=== PATIENT | male | born 1980 | race African-American/Black ===

== ENCOUNTER 2016-08-26 11:23 | Emergency (ER) | payer SELFPAY ==
[2016-08-26 11:35] VITALS: BMI 28.0
[2016-08-26 11:38] VITALS: TEMP 98.3
[2016-08-26] MEDS ORDERED: HYDROmorphone 1 MG INJECTION IV ONE (11:54)
[2016-08-26] MEDS ORDERED: Clindamycin 900 mg/D5W 50 ml 900 MG/50 ML IVB IV ONE (11:55)
[2016-08-26] MEDS ORDERED: DEXAMETHASONE PF 10 MG/1 ML VIAL IM ONE (11:55)
--- NOTE | 2016-08-26 12:00 | EDPRACDOC ---
- General Information Chief Complaint: Sore Throat Stated Complaint: SORE THROAT Time Seen by Provider: 08/26/16 11:40 Information Source: Patient Mode Of Arrival: Car Home Medications: Home Medications Clindamycin [Cleocin] 300 mg PO TID #56 cap 08/26/16 Ondansetron [Zofran Odt] 4 mg PO Q6H PRN #20 tab.rapdis 08/26/16 Oxycodone Immediate Release [Oxycodone Immediate Release (OxyIR)] 5 mg PO Q6H PRN #30 tab 08/26/16 Allergies/Adverse Reactions: Allergies Allergy/AdvReac Type Severity Reaction Status Date / Time No Known Allergies Allergy Unverified 08/26/16 11:35 - History of Present Illness Onset: 4 DAYS Medications/Treatment GRADER PATROL Ibuprofen/Acetaminophen (Dose/ ADVIL X 1-799 Time) HPI: PT STATES HE BEGAN HAVING SORE THROAT 4 DAYS AGO AND IT IS WORSENING. PT PRESENT WITH HOT POTATO VOICE Sore Throat Symptoms: Reports: Pain, Muffled Voice White Spots Location: Reports: Pharynx Recent: Reports: None Relevant History of: Reports: None Pain Severity: Reports: Moderate Urinary Output: Normal Oral Intake: Decreased Associated Signs and Symptoms: Reports: Earache - Treatment Prior to ED Arrival Reported Medications/Treatment GRAD[employer] PATROL Ibuprofen/Acetaminophen (Dose/ ADVIL X -799 Time) ED Past Medical History - History Reviewed Yes Nurses notes reviewed and agree except as marked - Patient Medical History Psychological History: Denies: Depression - Social Medical History Smoking Status: Light tobacco smoker (less than 5/day) EDM Review of Systems - Review of Systems ROS Negative Except as Marked: Yes All systems reviewed and were negative except as marked - Physical Exam Constitutional: Alert Oriented to: Time, Person, Place Last recorded Vital Signs: Last Vital Signs Temp 98.3 F 08/26/16 11:35 Pulse 114 08/26/16 11:35 Resp 20 08/26/16 11:35 BP 155/84 08/26/16 11:35 Pulse Ox 96 08/26/16 11:35 Oxygen Pulse Oxygen Saturation 96 O2 Device Oxygen Flow Rate Fraction of Inspired Oxygen ( FIO2) - HEENT Head: Normal ( normocephalic) Eye Exam: Normal (PERRL, EOMI, Sclera white) Oropharynx: Exudate, Red, Tonsillar Hypertrophy (LARGE LEFT TONSIL, PUSHING UVULA TO THE RIGHT) Tympanic Membrane: Normal Nose: No Symptoms Reported (septum midline) Neck: Normal (FROM, trachea at midline) - Respiratory/Cardiovascular Respiratory: Normal - CTA (BBS clear to auscultation without adventitious sounds ) Cardiovascular: Normal (RRR without murmur, gallop or rub) - GI Auscultation: Normal (NABS) Palpation: Normal (Soft,No rebound or guarding, non distended) Tenderness: Non tender Zaidi's Sign: Negative Rectal Exam: Deferred - Musculoskeletal Back: Normal (Non-Tender) Extremities: Normal (Normal tone, Pulses 2+ No cyanosis or edema, FROM) - Integumentary Skin: Normal, Warm, Dry Lymphatics: Normal (no adenopathy) - Neurologic Memory Impaired: Normal Motor Function: Normal (Normal tone, Pulses 2+ No cyanosis or edema, FROM) Cranial Nerve: Normal (CN II-X11 intact sensation, strength 5/5) Cerebellar: Normal Mood Description: Normal Perception: Normal - Differential Diagnosis Peritonsillar abscess, Pertonsillar cellulitis - Results 08/26/16 12:10 08/26/16 12:10 Decision Time to Discharge: 13:25 - Departure Disposition: Home Condition: Stable Final Diagnosis: Peritonsillar cellulitis Instructions: Peritonsillar Abscess (ED), Tonsillectomy (GEN) Education/Counseling Given To: Patient Education/Counseling Given Regarding: Diagnosis, Treatment, Prognosis, Follow Up Referrals: Miguel Mitchell DO [Staff Physician] - One Week Prescriptions: Clindamycin [Cleocin] 300 mg PO TID #56 cap Ondansetron [Zofran Odt] 4 mg PO Q6H PRN #20 tab.rapdis PRN Reason: Nausea/Vomiting Oxycodone Immediate Release [Oxycodone Immediate Release (OxyIR)] 5 mg PO Q6H PRN #30 tab PRN Reason: Pain Additional Instructions: PLEASE CALL DR MITCHELL'S OFFICE IN THE MORNING, THEY WILL SEE YOU FOR FOLLOW UP. INCREASE FLUID INTAKE. FOLLOW UP WITH PRIMARY CARE PROVIDER NEXT WEEK. TAKE ALL ANTIBIOTICS PRESCRIBED. RETURN TO THE ED FOR WORSENING SYMPTOMS OR CONCERNS. - Physician Consulted ENT Time Called: 11:57 Provider Called: Miguel Mitchell Time Historical Site Guide Returned Call: 11:57 Consult Reason: DR. REYNOSO SPOKE WITH DR MITCHELL, EXPRESSED CONCERN OF PERITONSILAR ABSCESS. DR MITCHELL STATES IT IS MORE LIKELY CELLULITIS DUE TO IT ONLY BEGIN 4 DAYS AND FOR THE PATIENT TO HAVE CLINDAMYCIN, DECADRON AND FOLLOW UP WITH OFFICE TOMORROW
[2016-08-26] MEDS ORDERED: NS 1,000 ML IV ONE (12:14)
[2016-08-26 12:18] LABS: AUTOMATED BASOPHIL 0.4 % (0-2); AUTOMATED EOSINOPHIL 0.8 % (0-5); AUTOMATED LYMPH 10.5 % (17-44); AUTOMATED MONOCYTE 10.2 % (3-10); AUTOMATED NEUTROPHIL 78.1 % (45-76); MPV 10.2 fL (7.4-10.4)
[2016-08-26 12:29] LABS: BLOOD UREA NITROGEN 10 MG/DL (9-20); CALCIUM 9.5 MG/DL (8.4-10.2); CALCULATED OSMOLALITY 275 MOs/Kg (270-290); CHLORIDE 102 mEq/L (98-107); GLUCOSE 110 MG/DL (70-99); SODIUM LEVEL 143 mEq/L (137-146); TOTAL PROTEIN 8.5 G/DL (6.3-8.2)
[2016-08-26 14:12] VITALS: BP 156/79; PULSE 106
[2016-08-26] MEDS ORDERED: OXYCODONE HCL 5 MG TABLET PO ONE (14:18)
== END 2016-08-26 14:02 | disposition home or self-care (01) ==
LOC: EDMC 11:23
DX: J36 Peritonsillar abscess (principal)
CPT/HCPCS: 36415; 80053; 85025; 96365; 96372; 96375; 99283; J1100; J1170; J3490; S0077